=== PATIENT | female | born 1970 | race Caucasian/White ===

== ENCOUNTER 2021-04-28 17:06 | Outpatient (CLI) | payer OTHER, SELFPAY ==
--- NOTE | 2021-04-28 | DI.RAD_ITS ---
Exam(s) XR HAND LT COMPLETE EXAM: XR HAND LT COMPLETE CLINICAL HISTORY: THUMB PAIN LEFT. TECHNIQUE: 2D digital imaging was performed. COMPARISON: No exams were available for comparison FINDINGS: BONES: There is a fracture at the ulnar base the 1st proximal phalanx which shows mild displacement. There is some separation at the articular surface. No additional fractures. No bony destructive le erick is seen. JOINTS: No dislocation present. SOFT TISSUE: Normal. IMPRESSION: Fracture of the ulnar corner at the base of the 1st proximal phalanx. DATA REPOSITORY: RADIATION DOSE DELIVERED:
--- NOTE | 2021-04-28 17:56 | DI.VRAD_ITS ---
PROCEDURE INFORMATION: Exam: XR Left Hand Exam date and time: 04/28/2021 5:23 PM Age: 50 years old Clinical indication: Finger(s); Patient HX: Left thumb pain, injury 5 days ago. TECHNIQUE: Imaging protocol: XR Left hand. Views: 3 or more views. Total images: 3 COMPARISON: No relevant prior studies available. FINDINGS: Bones/joints: There is an intra-articular , oblique fracture through the base of the 1st proximal phalanx, ulnar aspect. The fragment is moderately displaced. No dislocation. Soft tissues: Normal. IMPRESSION: Moderately displaced intra-articular 1st proximal phalanx fracture. Dictated and Authenticated by: Clark Lockett MD. Ordering:LÓPEZ Call MD
== END 2021-04-28 17:26 ==
LOC: LBN 17:11 → DI 18:29
PROVIDERS: Visit Provider Physician Assistant Medical
DX: S62.512A Displaced fracture of proximal phalanx of left thumb, initial encounter for closed fracture (principal); X58.XXXA Exposure to other specified factors, initial encounter
CPT/HCPCS: 73130

== ENCOUNTER 2024-05-31 10:50 | Emergency (ER) | payer OTHER, SELFPAY ==
[2024-05-31 10:53] VITALS: BP 138/89; PULSE 75; RESP 18; TEMP 37.1; O2SAT 99
--- NOTE | 2024-05-31 11:19 | ED.GENADUL_ITS ---
Discharge Plan Disposition Patient Disposition: Home Condition: Stable Discharge Details Clinical Impression: Low back pain Primary Care Provider: Kaycee,Local ED Provider: Екатерина Padgett Home Meds and New Rx's Prescriptions: New valacyclovir 1 gram tablet 1,000 mg PO TID Qty: 21 0RF Rx Instructions: Begin taking if you develop a rash Discharge Instructions Instructions: Low Back Pain (DC) Additional Instructions: You were seen in the emergency department today for evaluation of lower back pain, and received medications for management of your symptoms. While we are unable to always tell you the exact cause of your pain in the emergency department, it is safe for you to go home and continue to take [id number] medications such as ibuprofen, topical medications, and use heat or ice. I did provide you with a short course of narcotic pain medication to use for nighttime or breakthrough pain, please avoid driving when on this medication. This medication does contain Tylenol, be cautious if mixing this with other Tylenol containing medications. It is possible that you have early shingles pain, and if you develop a rash I r ecommend filling the prescription for valacyclovir and taking the entire course as recommended. You need to follow-up with your primary care provider upon returning home, but can return to the emergency department sooner if you have any fever, loss of bowel or bladder function, weakness or numbness of your lower extremities, or any other symptoms that cause you concern. Thank you for allowing us to be part of your care. HPI General Mode of arrival: ambulatory . Date/Time Provider Initiated Documentation: 05/31/24 10:51 . Limitations to Documentation: no limitations . Information obtained by: patient and family . HPI Narrative: This is a 53-year-old female patient, previously healthy, presenting for evaluation of 3 days of back pain. 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 Reports that the pain is located in her lower right back, feels like labor pains and is exacerbated by movement. She found some relief with floating in water, has tried ibuprofen at home without improvement. The patient reports that she has intermittently noted some tingling in her toes, states that her pain radiates to her buttock but not down into her leg. It is not associated with any saddle anesthesia, fever, dysuria or hematuria. She has not noted any weakness and has been able to ambulate with steady gait. She reports that she has not had any injuries or trauma, has never had any problems with her back before. Denies abdominal pain. States that she has been constipated and has not passed stool since Saturday, states that this is occasionally typical for her. She has been able to eat and drink without nausea or vomiting, has not had diarrhea. The patient resides in [place] with her , who accompanies her to this visit. She is up here on vacation and will be present in the area for approximately 1 week. No previous records were available for review. Related Data Home Medications ?Medication ?Instructions ?Recorded ?Confirmed valacyclovir 1 gram tablet 1,000 mg PO TID #21 tabs 05/31/24 Previous Rx's ?Medication ?Instructions ?Recorded valacyclovir 1 gram tablet 1,000 mg PO TID #21 tabs 05/31/24 Allergies Allergy/AdvReac Type Severity Reaction Status Date / Time No Known Allergies Allergy Unverified 05/31/24 10:56 General Stated Complaint: Nk/Back Pain CHA: 3 Review of Systems All systems reviewed & are unremarkable except as noted in HPI and below Exam Const General: cooperative and healthy appearing Nutritional Appearance: well nourished Orientation: alert and oriented x3 Neck Neck: normal visual inspection, full ROM and nontender GI Inspection: normal to inspection and non-distended Palpation: soft, no guarding, no pulsatile masses and tender in the RUQ (mild tenderness to deep palpation, negative Henriquez's sign) Back/Spine/Pelvis Back: no CVA tenderness Thoracic/Lumbar Spine: thoracic and lumbar spine normal to inspection, straight leg raise negative bilaterally and paraspinal tenderness (Over area of right SI joint with no overlying skin changes) Skin General skin exam: no rashes or lesions noted Neuro Gait: antalgic Motor: strength 5/5 throughout Sensory Exam: no sensory deficits noted Extrem General: normal to inspection, full ROM, capillary refill normal, no pedal edema and no calf tenderness Course Vital Signs Vital signs: Vital Signs Temperature 37.1 C 05/31/24 10:53 Pulse 75 05/31/24 10:53 Respiratory Rate 18 05/31/24 10:53 Blood Pressure 138/89 05/31/24 10:53 Pulse Oximetry 99 05/31/24 10:53 Temperature 37.1 C 05/31/24 10:53 Temperature Source Temporal Artery Scan 05/31/24 10:53 Pulse 75 05/31/24 10:53 Respiratory Rate 18 05/31/24 10:53 Respiratory Effort Normal, Non-Labored 05/31/24 10:58 Blood Pressure 138/89 05/31/24 10:53 Blood Pressure Position Sitting 05/31/24 10:53 Pulse Oximetry 99 05/31/24 10:53 Oxygen Delivery Method Room Air 05/31/24 10:53 Oxygen Flow Rate 0 05/31/24 10:53 Medical Decision Making In brief, this is a 53-year-old female patient presenting for evaluation of 3 days of nontraumatic lower back pain. Differentials considered include but are not limited to musculoskeletal back pain, sciatica. The patient is without fever, tachycardia, or risk factors for infectious etiology such as spinal epidural abscess, osteomyelitis or discitis. She did not have trauma and is not at risk for pathological fracture, making fracture, dislocation less likely. Patient does not have urinary symptoms making UTI, renal stones less likely. The patient's symptoms are not consistent with cauda equina. She is without personal risk factors nor abdominal exam findings to increase my concern for aortic aneurysm. Regarding her mild right upper quadrant abdominal pain to palpation, it is a low concern for intra-abdominal pathology, the patient is able to tolerate p.o., and the patient is most concerned that this is due to her pre-existing constipation. Overall, this is a well-appearing patient, hemodynamically appropriate, and neurovascularly intact. We had a shared decision making conversation regarding the limited utility of imaging in the early nontraumatic lower back pain, as I do not believe plain films would be of use in this patient at low risk of fracture. I do not see any indication at this time for emergent MRI or intra- abdominal imaging. The patient has no previous medical history nor findings on my physical examination to warrant laboratory studies at this time, and she uses an IUD for prevention. We will provide the patient with a dose of Tylenol, Toradol, and a lidocaine patch, and reassess efficacy of these interventions. - On reevaluation, the patient reports that her pain is not significantly improved by the Tylenol, Toradol, and Lidoderm, though she has remained ambulatory and without change in her neurovascular examination. The patient was provided with a dose of oxycodone and has safe transportation home from this emergency department. The patient does endorse concern that the symptoms could represent early shingles, has a history of shingles and states that the pain feels slightly similar. As noted in the exam above, there were no overlying skin changes, dermatomal rash, or vesicles appreciated over the area of pain. Given the patient's concern for potential early shingles, we did discuss a [id number] prescription for valacyclovir as the patient has been traveling, and the patient understands that if she was to develop a characteristic rash she should start this medication and complete the entire course as prescribed. I did recommend that the patient continue Tylenol and ibuprofen as well as heat and topical therapies for pain, and provided her with a short course of [place] for breakthrough and nighttime pain. At the time of discharge, the patient was ambulatory, without neurovascular deficit, and at this time she is safe for discharge to home. She is understanding of the follow-up plan and return precautions, which include fever, bowel or bladder dysfunction, neurodeficits such as weakness or numbness, or any other symptoms that cause her concern. The patient remained hemodynamically stable while under my care and left our facility without incident. Quality:SDOH Health Related Social Needs: No Data to Display PFSH All Active Problems (Updated 05/31/24 @ 12:20 by Екатерина Padgett MD) Low back pain (Acute) Social History Smoking/Tobacco Use Status: Never Smoking risk assessment performed?: Yes Alcohol Intake: current Alcohol Intake frequency: a few times a week Drug use: Never Substance use type: does not use PAWSS Have you Been Recently Intoxicated or Drunk Within the Last 30 days?: No Have you Ever Experienced Previous Episodes of Alcohol Withdrawal?: No Have you ever Experienced Withdrawal Seizures?: No Have you ever Experienced Delirium Tremens(DT)s?: No Have you ever undergone Alcohol Rehabilitation Treatment (i.e, inpt ot outpatient treatment programs)?: No Have you ever Experienced Blackouts?: No Have you ever Combined Alcohol with other Downers within the last 90 days?: No Have you ever Combined Alcohol with any other Substance of Abuse during the last 90 days?: No Positive Blood Alcohol level on Presentation? [PCS.BAL]: No Evidence of Increased Autonomic Activity (i.e. HR>120, tremor, sweating, agitation, nausea)?: No Result: 0
[2024-05-31] MEDS: Ketorolac 15 MG/ML VIAL IM (11:33)
[2024-05-31] MEDS: Lidocaine 5% Patch 1 PATCH TP (11:33)
[2024-05-31] MEDS: Acetaminophen 500 MG TAB 1000 MG PO (11:33)
[2024-05-31] MEDS: oxyCODONE 5 MG TAB PO (12:33)
[2024-05-31 12:34] VITALS: BP 122/55; PULSE 66; RESP 14; O2SAT 99
== END 2024-05-31 12:34 | disposition home or self-care (01) ==
LOC: ER 13:03
PROVIDERS: Emergency Provider Emergency Medicine
DX: M54.50 Low back pain, unspecified (principal)
CPT/HCPCS: 96372; 99284; 99283; J1885